=== PATIENT | female | born 1965 | race Caucasian/White ===

== ENCOUNTER → 2023-12-13 | Outpatient (CLI) | payer OTHER ==
[~2023-12-13] MED LIST: ALDACTONE25 M1 PO; ALDACTONE25 MG PO; ANAPROX DS550 MG PO; ASPIRIN CHILDRE81 MG PO; BENADRYL ALLERG25 M5 PO; BRILINTA90 M1 PO; CELEXA20 MG PO; COZAAR50 M1 PO; DIFLUCAN150 MG PO; EFFEXOR PO; LIPITOR80 MG PO; LISINOPRIL/HCTZ1 TA2 PO; Lopressor25 MG PO; Motrin,Rufen800 MG PO; PERCOCET 325 MG1 TA6 PO; PERCOCET 325 MG1 TA7 PO; PERCOCET 5-3251 EACH PO; PROVENTIL HFA6.7 GM INH; SEROQUEL50 MG PO; SKELAXIN800 MG PO; SUBOXONE 8 MG-1 EACH SL; SYMB80 INH; TORADOL10 MG PO; ULTRAM50 MG PO; VISTARIL25 MG PO; VISTARIL50 MG PO; XANAX1 MG PO; ZITHROMAX200 MG/51 PO; ZOFRAN4 MG PO
== END | disposition home or self-care (01) ==
LOC: ORTHO 09:36
PROVIDERS: ATTEND Orthopaedic Surgery
DX: S82.142A Displaced bicondylar fracture of left tibia, initial encounter for closed fracture (principal); M25.462 Effusion, left knee; X58.XXXA Exposure to other specified factors, initial encounter; Y93.89 Activity, other specified; Y92.89 Other specified places as the place of occurrence of the external cause; Y99.8 Other external cause status

== ENCOUNTER 2023-12-17 02:02 | Inpatient (IN) | payer OTHER ==
[2023-12-16 14:02] VITALS: BP 140/99
[2023-12-16 15:23] LABS: POTASSIUM 3.7 mmol/L (3.4-5.1)
[2023-12-17] VITALS (8 sets, daily range): BP systolic 144–170; BP diastolic 88–97
[~2023-12-17] VITALS: Ht 154.9 cm; Wt 104.3 kg
[~2023-12-17 02:02] MED LIST changes: -PERCOCET 5-3251 EACH PO
[2023-12-17] MEDS ORDERED: ceFAZolin sodium 2GM/20ML IV ONE (13:00)
[2023-12-17] MEDS ORDERED: Lactated Ringer's Solution 1,000 ML IV ONE ×2 (13:00→13:02)
[2023-12-17] MEDS ORDERED: Midazolam Hydrochloride 2 MG/2 ML VIAL IV ONE (13:00)
[2023-12-17] MEDS ORDERED: ceFAZolin sodium/sodium chlor 20 ML IV ONE (13:02)
[2023-12-17] MEDS ORDERED: DEXAMETHASONE SODIUM PHOSP/PRESERVATIVE FREE 10 MG/ML VIAL ONE (13:17)
[2023-12-17] MEDS ORDERED: Midazolam Hydrochloride 2 MG/2 ML VIAL ONE (13:17)
[2023-12-17] MEDS ORDERED: Ropivacaine Hydrochloride 5 MG/ML 20 ML AMP IJ ONE (13:18)
[2023-12-17] MEDS ORDERED: Ondansetron Hydrochloride 4 MG/2 ML VIAL IV PRN (15:10)
[2023-12-17] MEDS ORDERED: PERCOCET 5-3251 EACH PO (15:12)
[2023-12-17 15:18] LABS: BASO # 0.1 10*3/uL (0.0-0.1); BASO % 1.2 % (0.0-1.0); EOS # 0.2 10*3/uL (0.0-0.4); EOS % 1.5 % (1.0-4.0); HEMATOCRIT 36.1 % (37.0-47.0); LYMPH # 1.6 10*3/uL (1.3-4.4); LYMPH % 15.1 % (27.0-41.0); MEAN CELL VOLUME 90.5 fl (81.0-99.0); MEAN CORPUSCULAR HGB 28.1 pg (27.0-31.0); MEAN PLATELET VOLUME 9.1 fl (9.6-12.3); MONO # 0.5 10*3/uL (0.1-1.0); MONO % 5.2 % (3.0-9.0); NEUT % 76.7 % (47.0-73.0); PLATELET COUNT AUTOMATED 416 10*3/uL (130-400); RED BLOOD COUNT 3.99 10*6/uL (4.10-5.10); RED CELL DISTRI WIDTH 12.9 % (0-14.5); WHITE BLOOD COUNT 10.4 10*3/uL (4.8-10.8)
[2023-12-17] MEDS ORDERED: HYDROmorphONE Hydrochloride 1 MG/ML SYR IV ONE (17:45)
[2023-12-17] MEDS ORDERED: HYDROmorphONE Hydrochloride 1 ML IV ONE (17:53)
[2023-12-17] MEDS ORDERED: ASPIRIN ENTERIC COATED 81 MG TAB PO SCH (18:00)
[2023-12-17] MEDS ORDERED: MORPHINE Sulfate 2 MG/ML SYR IV PRN (19:20)
[2023-12-17] MEDS ORDERED: Acetaminophen/Hydrocodone 5 MG/325 MG TABLET PO PRN (19:20)
[2023-12-17] MEDS ORDERED: ACETAMINOPHEN 325 MG TAB PO PRN (19:20)
[2023-12-17] MEDS ORDERED: BISACODYL 5 MG TAB PO PRN (19:20)
[2023-12-17] MEDS ORDERED: hydrOXYzine pamoate 25 MG CAP PO PRN (21:30)
[2023-12-17] MEDS ORDERED: Metoprolol Tartrate 25 MG TAB PO SCH (22:00)
[2023-12-17] MEDS ORDERED: ceFAZolin sodium 1 GM in SYRINGE INFUSION 10 ML IV SCH (22:00)
[2023-12-17] MEDS ORDERED: TICAGRELOR 90 MG TABLET PO SCH (22:00)
[2023-12-18] VITALS: BP 141/85
[2023-12-18 06:28] LABS: ACT PARTIAL THROMBO TIME 27.5 SECONDS (20.0-32.1)
[2023-12-18 06:43] LABS: BASO % 0.2 % (0.0-1.0); HEMATOCRIT 29.3 % (37.0-47.0); LYMPH # 1.9 10*3/uL (1.3-4.4); LYMPH % 12.1 % (27.0-41.0); MEAN CORPUSCULAR HGB 28.5 pg (27.0-31.0); MEAN CORPUSCULAR HGB CONC 32.4 g/dl (33.0-37.0); MEAN PLATELET VOLUME 9.4 fl (9.6-12.3); MONO % 6.4 % (3.0-9.0); NEUT # 12.4 10*3/uL (2.3-7.9); NEUT % 80.8 % (47.0-73.0); PLATELET COUNT AUTOMATED 417 10*3/uL (130-400); RED BLOOD COUNT 3.33 10*6/uL (4.10-5.10); RED CELL DISTRI WIDTH 12.8 % (0-14.5); WHITE BLOOD COUNT 15.4 10*3/uL (4.8-10.8)
[2023-12-18 07:22] LABS: VITAMIN D, 25-HYDROXY 12.1 ng/mL (30-100)
[2023-12-18 07:26] LABS: ALKALINE PHOSPHATASE 100 U/L (46-116); BUN 16 mg/dl (9-23); CHLORIDE 108 mmol/L (98-107); CHOLESTEROL 206 mg/dL (<200); FREE T4 1.03 ng/dl (0.89-1.76); LDL CHOLESTEROL 150 mg/dL (9-159); POTASSIUM 3.9 mmol/L (3.4-5.1); TOTAL PROTEIN 6.5 gm/dL (6.0-8.0); TRIGLYCERIDES 101 mg/dl (<150)
[2023-12-18 07:28] LABS: SGPT/ALT < 7 U/L (5-49)
[2023-12-18 08:00] VITALS: BP 148/82
[2023-12-18] MEDS ORDERED: ATORVASTATIN CALCIUM 80 MG TAB PO SCH (10:00)
[2023-12-18] MEDS ORDERED: Cholecalciferol 2,000 UNIT TABLET (50 MCG) PO SCH (10:00)
[2023-12-18] MEDS ORDERED: SPIRONOLACTONE 25 MG TAB PO SCH (10:00)
[2023-12-18] MEDS ORDERED: Losartan Potassium 100 MG TABLET PO SCH (10:00)
[2023-12-18] MEDS ORDERED: GUAIFENESIN 600 MG TAB ER PO SCH (10:00)
[2023-12-18 12:00] VITALS: BP 175/96
[2023-12-18] MEDS ORDERED: VITAMIN D350 MCG PO (12:23)
== END 2023-12-18 15:23 | disposition home health service (06) | DRG 313 ==
LOC: SDC 02:02 → 4E 17:06
PROVIDERS: Orthopaedic Surgery; Student in an Organized Health Care Education/Training Program; ADMIT Family Medicine; ATTEND Family Medicine
PROC: 3E0T3BZ Introduction of Anesthetic Agent into Peripheral Nerves and Plexi, Percutaneous Approach (ICD-10-PCS; 2023-12-17)
PROC: 0QSH04Z Reposition Left Tibia with Internal Fixation Device, Open Approach (ICD-10-PCS; principal; 2023-12-18)
DX: S82.132A Displaced fracture of medial condyle of left tibia, initial encounter for closed fracture (principal); N17.0 Acute kidney failure with tubular necrosis; D64.9 Anemia, unspecified; E78.2 Mixed hyperlipidemia; J44.9 Chronic obstructive pulmonary disease, unspecified; I10 Essential (primary) hypertension; D75.839 Thrombocytosis, unspecified; F31.9 Bipolar disorder, unspecified; W08.XXXA Fall from other furniture, initial encounter; F41.9 Anxiety disorder, unspecified; G89.18 Other acute postprocedural pain; I25.10 Atherosclerotic heart disease of native coronary artery without angina pectoris; Z95.5 Presence of coronary angioplasty implant and graft; Z98.890 Other specified postprocedural states; Z87.81 Personal history of (healed) traumatic fracture; I25.2 Old myocardial infarction; Z85.118 Personal history of other malignant neoplasm of bronchus and lung; Y92.89 Other specified places as the place of occurrence of the external cause; Y93.89 Activity, other specified; Y99.8 Other external cause status; Z91.041 Radiographic dye allergy status; Z88.8 Allergy status to other drugs, medicaments and biological substances; Z79.82 Long term (current) use of aspirin; Z79.1 Long term (current) use of non-steroidal anti-inflammatories (NSAID); Z79.899 Other long term (current) drug therapy; Z79.51 Long term (current) use of inhaled steroids; Z88.2 Allergy status to sulfonamides; Z98.891 History of uterine scar from previous surgery; Z98.51 Tubal ligation status; Z82.3 Family history of stroke; Z80.1 Family history of malignant neoplasm of trachea, bronchus and lung

== ENCOUNTER → 2024-01-01 | Outpatient (CLI) | payer OTHER ==
[~2024-01-01] MED LIST changes: +PERCOCET 5-3251 EACH PO; +VITAMIN D350 MCG PO
== END | disposition home or self-care (01) ==
LOC: ORTHO 05:30
PROVIDERS: ATTEND Orthopaedic Surgery
DX: S82.132D Displaced fracture of medial condyle of left tibia, subsequent encounter for closed fracture with routine healing (principal); X58.XXXD Exposure to other specified factors, subsequent encounter

== ENCOUNTER 2024-01-24 16:50 | Emergency (ER) | payer OTHER ==
[~2024-01-24] VITALS: Ht 154.9 cm; Wt 66.2 kg
[2024-01-24] MEDS ORDERED: Acetaminophen/Oxycodone 5 MG/325 MG TABLET PO ONE (17:20)
[2024-01-24] MEDS ORDERED: VRAYLAR1.5 MG PO (17:32)
[2024-01-24] MEDS ORDERED: CITALOPRAM10 MG PO (17:32)
[2024-01-24] MEDS ORDERED: BUPRENORPHINE-1 EAC2 SL (17:34)
[2024-01-24] MEDS ORDERED: GABAPENTIN600 MG PO (17:35)
[2024-01-24] MEDS ORDERED: ASPIRIN ADULT L81 M2 PO (17:35)
[2024-01-24] MEDS ORDERED: LOSARTAN POTASS50 M1 PO (17:36)
[2024-01-24] MEDS ORDERED: MELOXICAM7.5 MG PO (18:28)
== END 2024-01-24 18:29 | disposition home or self-care (01) ==
LOC: ED 16:50
DX: S80.02XA Contusion of left knee, initial encounter (principal); I10 Essential (primary) hypertension; G43.909 Migraine, unspecified, not intractable, without status migrainosus; F41.9 Anxiety disorder, unspecified; J44.9 Chronic obstructive pulmonary disease, unspecified; F31.9 Bipolar disorder, unspecified; Z88.8 Allergy status to other drugs, medicaments and biological substances; Z91.013 Allergy to seafood; Z88.6 Allergy status to analgesic agent; Z91.041 Radiographic dye allergy status; Z98.890 Other specified postprocedural states; Z98.51 Tubal ligation status; F12.90 Cannabis use, unspecified, uncomplicated; W01.0XXA Fall on same level from slipping, tripping and stumbling without subsequent striking against object, initial encounter; Y93.89 Activity, other specified; Y92.002 Bathroom of unspecified non-institutional (private) residence as the place of occurrence of the external cause; Y99.8 Other external cause status

== ENCOUNTER → 2024-01-29 | Outpatient (CLI) | payer OTHER ==
[~2024-01-29] MED LIST changes: +ASPIRIN ADULT L81 M2 PO; +BUPRENORPHINE-1 EAC2 SL; +CITALOPRAM10 MG PO; +GABAPENTIN600 MG PO; +LOSARTAN POTASS50 M1 PO; +MELOXICAM7.5 MG PO; +VRAYLAR1.5 MG PO
== END | disposition home or self-care (01) ==
LOC: ORTHO 02:26
PROVIDERS: ATTEND Orthopaedic Surgery
DX: S82.132D Displaced fracture of medial condyle of left tibia, subsequent encounter for closed fracture with routine healing (principal); M25.462 Effusion, left knee; X58.XXXD Exposure to other specified factors, subsequent encounter

== ENCOUNTER 2024-02-08 00:04 | Emergency (ER) | payer OTHER ==
[2024-02-08] MEDS ORDERED: ADENOSINE 6 MG/2 ML VIAL IV ONE ×3 (00:10→00:17)
[2024-02-08] MEDS ORDERED: SODIUM CHLORIDE 0.9% 1,000 ML IV ONE ×2 (00:10→00:17)
[2024-02-08 01:46] LABS: BASO # 0.1 10*3/uL (0.0-0.1); BASO % 0.8 % (0.0-1.0); EOS # 0.3 10*3/uL (0.0-0.4); EOS % 2.5 % (1.0-4.0); HEMATOCRIT 40.2 % (37.0-47.0); LYMPH % 19.8 % (27.0-41.0); MEAN CELL VOLUME 89.7 fl (81.0-99.0); MEAN CORPUSCULAR HGB 27.9 pg (27.0-31.0); MEAN CORPUSCULAR HGB CONC 31.1 g/dl (33.0-37.0); MEAN PLATELET VOLUME 9.2 fl (9.6-12.3); MONO # 0.7 10*3/uL (0.1-1.0); MONO % 7.1 % (3.0-9.0); NEUT % 69.5 % (47.0-73.0); PLATELET COUNT AUTOMATED 353 10*3/uL (130-400); RED BLOOD COUNT 4.48 10*6/uL (4.10-5.10); RED CELL DISTRI WIDTH 14.1 % (0-14.5); WHITE BLOOD COUNT 10.1 10*3/uL (4.8-10.8)
[2024-02-08 02:00] LABS: ACT PARTIAL THROMBO TIME 27.3 SECONDS (20.0-32.1)
[2024-02-08 02:08] LABS: ALKALINE PHOSPHATASE 125 U/L (46-116); BUN 6 mg/dl (9-23); CHLORIDE 107 mmol/L (98-107); TOTAL PROTEIN 7.5 gm/dL (6.0-8.0)
[2024-02-08 02:30] LABS: SGPT/ALT < 7 U/L (5-49)
[2024-02-08 02:31] LABS: POTASSIUM 2.4 mmol/L (3.4-5.1)
[2024-02-08] MEDS ORDERED: POTASSIUM CHLORIDE 20 MEQ TAB PO ONE (02:35)
== END 2024-02-08 03:00 | disposition home or self-care (01) ==
LOC: ED 00:04
PROVIDERS: Internal Medicine
DX: I47.10 Supraventricular tachycardia, unspecified (principal); E87.6 Hypokalemia; R79.89 Other specified abnormal findings of blood chemistry; I50.9 Heart failure, unspecified; Z91.013 Allergy to seafood; Z91.041 Radiographic dye allergy status; Z79.899 Other long term (current) drug therapy; Z79.82 Long term (current) use of aspirin; Z98.51 Tubal ligation status; Z98.890 Other specified postprocedural states

== ENCOUNTER → 2024-06-26 | Outpatient (CLI) | payer OTHER | END | disposition home or self-care (01) | LOC: ORTHO 04:25 | PROVIDERS: ATTEND Orthopaedic Surgery | DX: S82.132D Displaced fracture of medial condyle of left tibia, subsequent encounter for closed fracture with routine healing (principal); X58.XXXD Exposure to other specified factors, subsequent encounter ==

== ENCOUNTER 2024-11-06 15:12 | Inpatient (IN) | payer OTHER ==
[~2024-11-06] VITALS: Ht 154.9 cm; Wt 70.0 kg
[~2024-11-06 15:12] MED LIST changes: +CHOLESTYRAMINE L4 G1 PO; +K-TAB20 MEQ PO; +LOSARTAN POTAS100 M1 PO; +METOPROLOL TART50 M1 PO
[2024-11-06 15:17] VITALS: BP 127/87
[2024-11-06] MEDS ORDERED: Ondansetron Hydrochloride 4 MG/2 ML VIAL IV ONE (15:30)
[2024-11-06] MEDS ORDERED: SODIUM CHLORIDE 0.9% 1,000 ML IV ONE (15:30)
[2024-11-06] MEDS ORDERED: MORPHINE Sulfate 2 MG/ML SYR IV ONE (15:30)
[2024-11-06 16:06] LABS: BASO # 0.1 10*3/uL (0.0-0.1); EOS # 0.4 10*3/uL (0.0-0.4); EOS % 4.4 % (1.0-4.0); HEMATOCRIT 38.5 % (37.0-47.0); MEAN CELL VOLUME 92.3 fl (81.0-99.0); MEAN CORPUSCULAR HGB 29.3 pg (27.0-31.0); MEAN CORPUSCULAR HGB CONC 31.7 g/dl (33.0-37.0); MEAN PLATELET VOLUME 9.6 fl (9.6-12.3); MONO # 0.8 10*3/uL (0.1-1.0); MONO % 8.2 % (3.0-9.0); NEUT # 5.4 10*3/uL (2.3-7.9); NEUT % 57.5 % (47.0-73.0); PLATELET COUNT AUTOMATED 318 10*3/uL (130-400); RED BLOOD COUNT 4.17 10*6/uL (4.10-5.10); RED CELL DISTRI WIDTH 13.3 % (0-14.5); WHITE BLOOD COUNT 9.4 10*3/uL (4.8-10.8)
[2024-11-06 16:12] LABS: BUN 11 mg/dl (9-23); CHLORIDE 107 mmol/L (98-107); POTASSIUM 4.3 mmol/L (3.4-5.1)
[2024-11-06] MEDS ORDERED: HEPARIN SODIUM 250 ML IV SCH (16:35)
[2024-11-06] MEDS ORDERED: ASPIRIN, CHEWABLE 81 MG TAB PO ONE (16:35)
[2024-11-06] MEDS ORDERED: NITROGLYCERIN 1 IN PACKET T SCH (18:00)
[2024-11-06 20:08] VITALS: BP 115/74
[2024-11-06] MEDS ORDERED: LORAZEPAM1 MG PO (20:14)
[2024-11-06] MEDS ORDERED: LOPRESSOR25 MG PO (20:16)
[2024-11-06 21:02] VITALS: BP 115/74
[2024-11-06 21:10] VITALS: BP 116/68
[2024-11-06] MEDS ORDERED: Enoxaparin Sodium 60 MG/0.6 ML SYR SC SCH (22:00)
[2024-11-06] MEDS ORDERED: ASPIRIN ENTERIC COATED 81 MG TAB PO ONE (22:30)
[2024-11-07] VITALS: BP 96/63
[2024-11-07] MEDS ORDERED: ACETAMINOPHEN 325 MG TAB PO PRN (02:00)
[2024-11-07 08:00] VITALS: BP 104/66; BP 122/70
[2024-11-07] MEDS ORDERED: hydrOXYzine pamoate 25 MG CAP PO PRN (09:05)
[2024-11-07] MEDS ORDERED: BUDESONIDE 0.5 MG AMP NEB SCH (09:15)
[2024-11-07] MEDS ORDERED: Albuterol Sulfate 2.5 MG/3 ML VIAL NEB SCH (09:15)
[2024-11-07] MEDS ORDERED: Budesonide/Formoterol Fumarate 80/4.5 inhaler INH SCH (10:00)
[2024-11-07] MEDS ORDERED: METOPROLOL SUCCINATE XR 25 MG TAB PO SCH (10:00)
[2024-11-07] MEDS ORDERED: ASPIRIN 325 MG ENTERIC COATED PO ONE (10:00)
[2024-11-07] MEDS ORDERED: ATORVASTATIN CALCIUM 20 MG TAB PO SCH (10:00)
[2024-11-07] MEDS ORDERED: ATORVASTATIN CALCIUM 80 MG TAB PO SCH (10:00)
[2024-11-07 12:00] VITALS: BP 144/95
[2024-11-07] MEDS ORDERED: CHOLESTYRAMINE 4 GM PACKET PO SCH (12:00)
[2024-11-07 14:15] VITALS: BP 138/82
[2024-11-07] MEDS ORDERED: MORPHINE Sulfate 2 MG/ML SYR IV PRN (14:40)
[2024-11-07 16:00] VITALS: BP 154/83
[2024-11-07] MEDS ORDERED: NITROGLYCERIN 1 IN PACKET T SCH (18:00)
[2024-11-07 20:00] VITALS: BP 129/67
[2024-11-07] MEDS ORDERED: LORazepam 1 MG TAB PO PRN (23:05)
[2024-11-08] VITALS: BP 153/90
[2024-11-08 04:19] LABS: BASO # 0.1 10*3/uL (0.0-0.1); BASO % 0.8 % (0.0-1.0); EOS # 0.3 10*3/uL (0.0-0.4); EOS % 4.5 % (1.0-4.0); MEAN CELL VOLUME 92.5 fl (81.0-99.0); MEAN CORPUSCULAR HGB CONC 31.4 g/dl (33.0-37.0); MEAN PLATELET VOLUME 9.8 fl (9.6-12.3); MONO # 0.6 10*3/uL (0.1-1.0); MONO % 8.1 % (3.0-9.0); NEUT # 3.7 10*3/uL (2.3-7.9); NEUT % 51.5 % (47.0-73.0); PLATELET COUNT AUTOMATED 275 10*3/uL (130-400); RED BLOOD COUNT 3.89 10*6/uL (4.10-5.10); RED CELL DISTRI WIDTH 13.6 % (0-14.5); WHITE BLOOD COUNT 7.2 10*3/uL (4.8-10.8)
[2024-11-08 04:38] LABS: BUN 11 mg/dl (9-23); CHLORIDE 109 mmol/L (98-107); POTASSIUM 3.9 mmol/L (3.4-5.1)
[2024-11-08 08:00] VITALS: BP 135/74; BP 147/78
[2024-11-08 12:00] VITALS: BP 173/87
[2024-11-08 16:00] VITALS: BP 154/81
[2024-11-08] MEDS ORDERED: NITROGLYCERIN 0.4 MG BOT SL PRN (18:40)
[2024-11-08 20:00] VITALS: BP 111/49
[2024-11-09] VITALS: BP 148/93
[2024-11-09 08:00] VITALS: BP 142/92
[2024-11-09] MEDS ORDERED: TOPROL XL50 M1 PO (08:59)
[2024-11-09 09:52] LABS: BASO % 0.5 % (0.0-1.0); EOS # 0.2 10*3/uL (0.0-0.4); EOS % 3.1 % (1.0-4.0); HEMATOCRIT 40.4 % (37.0-47.0); MEAN CORPUSCULAR HGB 28.9 pg (27.0-31.0); MEAN CORPUSCULAR HGB CONC 31.4 g/dl (33.0-37.0); MEAN PLATELET VOLUME 9.7 fl (9.6-12.3); MONO # 0.5 10*3/uL (0.1-1.0); MONO % 6.2 % (3.0-9.0); NEUT # 4.7 10*3/uL (2.3-7.9); NEUT % 64.2 % (47.0-73.0); PLATELET COUNT AUTOMATED 319 10*3/uL (130-400); RED BLOOD COUNT 4.39 10*6/uL (4.10-5.10); RED CELL DISTRI WIDTH 13.4 % (0-14.5); WHITE BLOOD COUNT 7.4 10*3/uL (4.8-10.8)
[2024-11-09 10:08] LABS: BUN 11 mg/dl (9-23); CHLORIDE 106 mmol/L (98-107); POTASSIUM 3.8 mmol/L (3.4-5.1)
[2024-11-09 12:00] VITALS: BP 158/40
== END 2024-11-09 13:07 | disposition short-term general hospital (02) | DRG 190 ==
LOC: ED 15:12 → EDHOLD 16:37 → 4E 16:37
PROVIDERS: Emergency Medicine; ADMIT Internal Medicine; ATTEND Internal Medicine
DX: I21.4 Non-ST elevation (NSTEMI) myocardial infarction (principal); I25.10 Atherosclerotic heart disease of native coronary artery without angina pectoris; F41.1 Generalized anxiety disorder; M15.9 Polyosteoarthritis, unspecified; G89.4 Chronic pain syndrome; M47.896 Other spondylosis, lumbar region; F32.9 Major depressive disorder, single episode, unspecified; F12.10 Cannabis abuse, uncomplicated; J44.9 Chronic obstructive pulmonary disease, unspecified; Z95.5 Presence of coronary angioplasty implant and graft; Z98.891 History of uterine scar from previous surgery; Z82.3 Family history of stroke; Z80.1 Family history of malignant neoplasm of trachea, bronchus and lung; Z91.041 Radiographic dye allergy status; Z88.8 Allergy status to other drugs, medicaments and biological substances; Z98.51 Tubal ligation status; Z80.3 Family history of malignant neoplasm of breast

== ENCOUNTER 2025-01-20 13:04 | Emergency (ER) | payer OTHER ==
[~2025-01-20] VITALS: Ht 154.9 cm; Wt 69.4 kg
[~2025-01-20 13:04] MED LIST changes: +LOPRESSOR25 MG PO; +LORAZEPAM1 MG PO; +TOPROL XL50 M1 PO
== END 2025-01-20 14:21 | disposition left against medical advice (07) ==
LOC: ED 13:04
DX: T21.11XA Burn of first degree of chest wall, initial encounter (principal); I10 Essential (primary) hypertension; J44.9 Chronic obstructive pulmonary disease, unspecified; G43.909 Migraine, unspecified, not intractable, without status migrainosus; F32.A Depression, unspecified; F41.9 Anxiety disorder, unspecified; Z79.82 Long term (current) use of aspirin; Z79.899 Other long term (current) drug therapy; Z88.8 Allergy status to other drugs, medicaments and biological substances; Z91.041 Radiographic dye allergy status; Z98.51 Tubal ligation status; Z98.890 Other specified postprocedural states; X10.1XXA Contact with hot food, initial encounter; Y93.89 Activity, other specified; Y92.89 Other specified places as the place of occurrence of the external cause; Y99.8 Other external cause status

== ENCOUNTER 2025-01-23 00:54 | Emergency (ER) | payer OTHER ==
[~2025-01-23] VITALS: Ht 154.9 cm; Wt 63.0 kg
[2025-01-23] MEDS ORDERED: NYSTOP60 GM T (04:21)
== END 2025-01-23 04:49 | disposition home or self-care (01) ==
LOC: ED 00:54
DX: S20.112A Abrasion of breast, left breast, initial encounter (principal); S20.111A Abrasion of breast, right breast, initial encounter; T14.8XXA Other injury of unspecified body region, initial encounter; R07.81 Pleurodynia; M54.9 Dorsalgia, unspecified; M54.2 Cervicalgia; M25.561 Pain in right knee; M25.562 Pain in left knee; M79.671 Pain in right foot; M79.672 Pain in left foot; F41.9 Anxiety disorder, unspecified; Z91.013 Allergy to seafood; Z91.041 Radiographic dye allergy status; Z88.8 Allergy status to other drugs, medicaments and biological substances; Z79.82 Long term (current) use of aspirin; Z79.899 Other long term (current) drug therapy; Y04.2XXA Assault by strike against or bumped into by another person, initial encounter; Y93.89 Activity, other specified; Y92.89 Other specified places as the place of occurrence of the external cause; Y99.8 Other external cause status

== ENCOUNTER 2025-02-07 14:27 | Emergency (ER) | payer OTHER ==
[~2025-02-07] VITALS: Ht 154.9 cm; Wt 66.7 kg
[~2025-02-07 14:27] MED LIST changes: +NYSTOP60 GM T
[2025-02-07] MEDS ORDERED: CEPHALEXIN500 M1 PO (14:46)
[2025-02-07] MEDS ORDERED: CEPHALEXIN 500 MG CAP PO ONE (14:50)
[2025-02-07] MEDS ORDERED: methylPREDNISolone sod succ 125 MG VIAL IM ONE (14:50)
== END 2025-02-07 17:07 | disposition home or self-care (01) ==
LOC: ED 14:27
DX: S10.96XA Insect bite of unspecified part of neck, initial encounter (principal); S20.469A Insect bite (nonvenomous) of unspecified back wall of thorax, initial encounter; S40.862A Insect bite (nonvenomous) of left upper arm, initial encounter; S40.861A Insect bite (nonvenomous) of right upper arm, initial encounter; S50.361A Insect bite (nonvenomous) of right elbow, initial encounter; L03.113 Cellulitis of right upper limb; I25.10 Atherosclerotic heart disease of native coronary artery without angina pectoris; I25.2 Old myocardial infarction; J44.9 Chronic obstructive pulmonary disease, unspecified; F32.A Depression, unspecified; I10 Essential (primary) hypertension; E78.5 Hyperlipidemia, unspecified; G43.909 Migraine, unspecified, not intractable, without status migrainosus; Z91.013 Allergy to seafood; Z88.8 Allergy status to other drugs, medicaments and biological substances; Z91.041 Radiographic dye allergy status; Z79.899 Other long term (current) drug therapy; Z79.82 Long term (current) use of aspirin; Z95.5 Presence of coronary angioplasty implant and graft; Z98.890 Other specified postprocedural states; W57.XXXA Bitten or stung by nonvenomous insect and other nonvenomous arthropods, initial encounter; Y93.89 Activity, other specified; Y92.89 Other specified places as the place of occurrence of the external cause; Y99.8 Other external cause status

== ENCOUNTER 2025-02-27 20:39 | Emergency (ER) | payer OTHER ==
[~2025-02-27] VITALS: Ht 154.9 cm; Wt 66.7 kg
[~2025-02-27 20:39] MED LIST changes: +CEPHALEXIN500 M1 PO
[2025-02-27 21:11] LABS: BASO % 0.6 % (0.0-1.0); EOS # 0.3 10*3/uL (0.0-0.4); EOS % 4.8 % (1.0-4.0); HEMATOCRIT 35.8 % (37.0-47.0); MEAN CELL VOLUME 89.7 fl (81.0-99.0); MEAN CORPUSCULAR HGB 29.1 pg (27.0-31.0); MEAN CORPUSCULAR HGB CONC 32.4 g/dl (33.0-37.0); MEAN PLATELET VOLUME 9.5 fl (9.6-12.3); MONO # 0.6 10*3/uL (0.1-1.0); MONO % 8.6 % (3.0-9.0); NEUT # 3.2 10*3/uL (2.3-7.9); NEUT % 48.3 % (47.0-73.0); PLATELET COUNT AUTOMATED 271 10*3/uL (130-400); RED BLOOD COUNT 3.99 10*6/uL (4.10-5.10); RED CELL DISTRI WIDTH 13.2 % (0-14.5); WHITE BLOOD COUNT 6.7 10*3/uL (4.8-10.8)
[2025-02-27 21:41] LABS: ALKALINE PHOSPHATASE 92 U/L (46-116); BUN 12 mg/dl (9-23); CHLORIDE 107 mmol/L (98-107); POTASSIUM 3.6 mmol/L (3.4-5.1); TOTAL PROTEIN 6.6 gm/dL (6.0-8.0)
[2025-02-27 21:43] LABS: SGPT/ALT < 7 U/L (5-49)
== END 2025-02-27 23:41 | disposition home or self-care (01) ==
LOC: ED 20:39
PROVIDERS: Internal Medicine
DX: R07.89 Other chest pain (principal); D64.9 Anemia, unspecified; Z91.013 Allergy to seafood; Z88.8 Allergy status to other drugs, medicaments and biological substances; Z91.041 Radiographic dye allergy status; Z79.82 Long term (current) use of aspirin; Z79.899 Other long term (current) drug therapy; Z98.890 Other specified postprocedural states